=== PATIENT | female | born 1960 | race Caucasian/White ===

== ENCOUNTER 2017-12-20 13:53 | Outpatient (CLI) | END 2017-12-20 13:54 | disposition home or self-care (01) | LOC: FCC-LAB 13:53 | PROVIDERS: ATTEND Family Medicine | DX: D64.9 Anemia, unspecified (principal); Z13.220 Encounter for screening for lipoid disorders | CPT/HCPCS: 36415; 80053; 80061; 85025 ==

== ENCOUNTER 2018-11-21 11:54 | Outpatient (CLI) | END 2018-11-21 11:55 | disposition home or self-care (01) | LOC: RHC-LAB 11:54 → FCC-LAB 11:55 | PROVIDERS: ATTEND Family Medicine | DX: G47.00 Insomnia, unspecified (principal); Z51.81 Encounter for therapeutic drug level monitoring | CPT/HCPCS: 80306 ==